=== PATIENT | male | born 1975 ===

== ENCOUNTER 2019-02-25 09:09 | Outpatient (REF) | payer MEDICAID, SELFPAY ==
[2019-02-25 19:04] LABS: Abs Immature Grans 0.03 k/cumm (0.0-0.09); Absolute Basophil Count 0.04 k/cumm (0.0-0.2); Absolute Lymphocyte Count 3.28 k/cumm (1.2-3.4); Absolute Monocyte Count 0.85 k/cumm (0.11-0.7); Absolute Neutrophil Count 9.17 k/cumm (1.2-6.7); Basophils % 0.3; Eosinophils % 2.1; HCT 51.1 % (40.0-50.0); HGB 17.3 g/dL (13.5-17.5); Immature Grans % 0.2; Mean Corp. HGB Concentration 33.9 g/dL (32.0-36.0); Mean Corpuscular Hemoglobin 29.8 pg (27.0-33.0); Mean Platelet Volume 10.5 fL (8.0-11.0); Monocytes % 6.2; Neutrophils % 67.2; Platelet Count 356 x1000/uL (130-400); RBC 5.81 m/cumm (4.50-6.00); RBC Distribution Width 14.5 % (11.8-14.1); White Blood Cell Count 13.65 k/cumm (4.4-10.8)
[2019-02-25 19:06] LABS: Absolute Eosinophil Count 0.29 k/cumm (0.0-0.7)
[2019-02-25 19:15] LABS: Anion Gap 12.4 mmol/L (3-11); BUN 12 mg/dL (7-18); CO2 23.6 mmol/L (21.0-32.0); CREATININE 0.88 mg/dL (0.70-1.30); Calcium 8.9 mg/dL (8.5-10.1); Calculated LDL 124; Chloride 104 mmol/L (98-107); Cholesterol 202 mg/dL (50-200); Glucose 87 mg/dL (70-100); HDL Cholesterol 37 mg/dL (40-60); Potassium 4.7 mmol/L (3.5-5.1); Sodium 140 mmol/L (136-145); Triglyceride 207 mg/dL (30-150)
== END 2019-02-25 09:29 ==
LOC: NCHCN 09:09
PROVIDERS: PCP Nurse Practitioner Family; Visit Provider Physician Assistant Medical
DX: D72.829 Elevated white blood cell count, unspecified (principal); Z13.6 Encounter for screening for cardiovascular disorders; Z00.00 Encounter for general adult medical examination without abnormal findings
CPT/HCPCS: 80048; 80061; 83721; 85025

== ENCOUNTER 2019-10-11 11:26 | Outpatient (REF) | payer MEDICAID, SELFPAY ==
[2019-10-11 19:33] LABS: Calculated LDL 108 mg/dL (<100); Cholesterol 170 mg/dL (<200); Glucose 65 mg/dL (74-106); HDL Cholesterol 34 mg/dL (40-60); Triglyceride 141 mg/dL (<150)
[2019-10-14 10:41] LABS: Hepatitis C Ab w Rflx HCV PCR Negative (Negative)
[2019-10-14 10:45] LABS: HIV-1/2 Ag & Ab Screen Negative (Negative)
[2019-10-14 12:14] LABS: Syphilis Serology (RPR) Negative (Negative)
== END 2019-10-11 11:46 ==
LOC: LBN 11:26
PROVIDERS: PCP Nurse Practitioner Family
DX: Z13.1 Encounter for screening for diabetes mellitus (principal); Z11.4 Encounter for screening for human immunodeficiency virus [HIV]; Z11.3 Encounter for screening for infections with a predominantly sexual mode of transmission; Z13.220 Encounter for screening for lipoid disorders; Z11.59 Encounter for screening for other viral diseases; F52.21 Male erectile disorder; Z00.00 Encounter for general adult medical examination without abnormal findings
CPT/HCPCS: 80061; 82947; 84402; 84403; 86803; 87389; 86592

== ENCOUNTER 2020-04-16 16:00 | Outpatient (REF) | payer MEDICAID, SELFPAY ==
[2020-04-16 19:19] LABS: Abs Immature Grans 0.08 10^3/uL (0.0-0.06); Absolute Basophil Count 0.08 10^3/uL (0.0-0.2); Absolute Eosinophil Count 0.37 10^3/uL (0.0-0.7); Absolute Lymphocyte Count 4.12 10^3/uL (1.2-3.4); Absolute Monocyte Count 0.84 10^3/uL (0.1-0.8); Absolute Neutrophil Count 10.07 10^3/uL (1.2-6.7); Basophils % 0.5; Eosinophils % 2.4; HCT 48.3 % (40.0-50.0); HGB 16.2 g/dL (13.5-17.5); Immature Grans % 0.5; Lymphocytes % 26.5; MCHC 33.5 % (32.0-36.0); MCV 89.4 fL (80-95); MPV 10.3 fL (8.0-11.0); Monocytes % 5.4; Neutrophils % 64.7; Nucleated RBC 0 %; Platelet Count 401 10^3/uL (130-400); RDW 13.3 % (11.8-14.1); RDW-SD 43.7 fL; WBC 15.56 10^3/uL (4.4-10.8)
[2020-04-16 19:37] LABS: ALT 33 U/L (16-63); AST 18 U/L (15-37); Albumin 3.8 g/dL (3.4-5.0); Alkaline Phosphatase 70 U/L (46-116); Amylase 51 U/L (25-115); Anion Gap 10.8 mmol/L (3-11); BUN 15 mg/dL (7-18); Bilirubin, Total 0.4 mg/dL (0.2-1.0); CO2 25.2 mmol/L (21.0-32.0); CREATININE 0.91 mg/dL (0.70-1.30); Calcium 8.8 mg/dL (8.5-10.1); Chloride 105 mmol/L (98-107); Glucose 102 mg/dL (74-106); Lipase 83 U/L (73-393); Sodium 141 mmol/L (136-145); Total Protein 6.8 g/dL (6.4-8.2)
== END 2020-04-16 16:20 ==
LOC: NCHCN 16:00
PROVIDERS: PCP Nurse Practitioner Family; Visit Provider Physician Assistant
DX: R10.10 Upper abdominal pain, unspecified (principal); K21.9 Gastro-esophageal reflux disease without esophagitis
CPT/HCPCS: 80053; 83690; 82150; 85025

== ENCOUNTER 2020-04-20 16:24 | Outpatient (REF) | payer MEDICAID, SELFPAY ==
[2020-04-20 18:59] LABS: Absolute Basophil Count 0.09 10^3/uL (0.0-0.2); Absolute Eosinophil Count 0.35 10^3/uL (0.0-0.7); Basophils % 0.4; Eosinophils % 1.6; HCT 47.3 % (40.0-50.0); HGB 16.1 g/dL (13.5-17.5); Immature Grans % 0.5; Lymphocytes % 18.2; MCH 30.8 pg (27.0-33.0); MCV 90.4 fL (80-95); MPV 10.1 fL (8.0-11.0); Monocytes % 5.1; Neutrophils % 74.2; Nucleated RBC 0 %; Platelet Count 369 10^3/uL (130-400); RBC 5.23 10^6/uL (4.36-5.78); RDW 13.2 % (11.8-14.1); RDW-SD 43.7 fL; WBC 21.95 10^3/uL (4.4-10.8)
[2020-04-20 19:02] LABS: Absolute Lymphocyte Count 3.99 10^3/uL (1.2-3.4); Absolute Monocyte Count 1.12 10^3/uL (0.1-0.8); Absolute Neutrophil Count 16.29 10^3/uL (1.2-6.7)
[2020-04-20 19:08] LABS: C-Reactive Protein 2.42 mg/dL (0.0-0.3)
[2020-04-20 19:38] LABS: ESR 8 mm/hr (0-15)
== END 2020-04-20 16:44 ==
LOC: NCHCN 16:24
PROVIDERS: PCP Nurse Practitioner Family; Visit Provider Internal Medicine
DX: R10.10 Upper abdominal pain, unspecified (principal)
CPT/HCPCS: 85652; 85025; 86140

== ENCOUNTER 2022-09-01 17:38 | Outpatient (REF) | payer MEDICAID, SELFPAY ==
[2022-09-01 20:35] LABS: HCT 47.6 % (40.0-50.0); HGB 16.3 g/dL (13.5-17.5); MCH 29.2 pg (27.0-33.0); MCHC 34.2 % (32.0-36.0); MCV 85 fL (80-95); MPV 9.9 fL (8.0-11.0); Platelet Count 298 10^3/uL (130-400); RBC 5.58 10^6/uL (4.36-5.78); RDW 13.3 % (11.8-14.1); RDW-SD 41.4 fL; WBC 7.38 10^3/uL (4.4-10.8)
[2022-09-01 20:45] LABS: ALT 63 U/L (16-63); AST 28 U/L (15-37); Albumin 4.1 g/dL (3.4-5.0); Alkaline Phosphatase 74 U/L (46-116); Anion Gap 6.2 mmol/L (3-11); BUN 11 mg/dL (7-18); Bilirubin, Total 0.4 mg/dL (0.2-1.0); CO2 28.8 mmol/L (21.0-32.0); CREATININE 1.2 mg/dL (0.70-1.30); Calcium 8.5 mg/dL (8.5-10.1); Chloride 100 mmol/L (98-107); Glucose 96 mg/dL (74-106); Potassium 4.3 mmol/L (3.5-5.1); Sodium 135 mmol/L (136-145); Total Protein 7.2 g/dL (6.4-8.2)
[2022-09-01 21:00] LABS: Iron 37 ug/dL (65-175); Total Iron Binding Capacity 284 ug/dL (250-450); Transferrin Sat 13 % (20-55)
== END 2022-09-01 17:39 | disposition home or self-care (01) ==
LOC: NCHCN 17:38
PROVIDERS: PCP Nurse Practitioner Family; Visit Provider Internal Medicine
DX: K75.9 Inflammatory liver disease, unspecified (principal)
CPT/HCPCS: 80053; 85027; 83540; 83550; 87086

== ENCOUNTER 2024-05-22 16:10 | Outpatient (REF) | payer MEDICAID, SELFPAY ==
[2024-05-22 19:50] LABS: HCT 49.7 % (40.0-50.0); HGB 16.6 g/dL (13.5-17.5); MCH 28.5 pg (27.0-33.0); MCHC 33.4 % (32.0-36.0); MCV 85 fL (80-95); MPV 9.8 fL (8.0-11.0); Platelet Count 353 10^3/uL (130-400); RBC 5.83 10^6/uL (4.36-5.78); RDW 13.9 % (11.8-14.1); RDW-SD 43.2 fL; WBC 9.87 10^3/uL (4.4-10.8)
[2024-05-22 20:09] LABS: ALT 62 U/L (16-63); AST 30 U/L (15-37); Albumin 4.2 g/dL (3.4-5.0); Alkaline Phosphatase 64 U/L (46-116); Anion Gap 9.4 mmol/L (3-11); BUN 10 mg/dL (7-18); Bilirubin, Total 0.53 mg/dL (0.2-1.0); CO2 26.6 mmol/L (21.0-32.0); CREATININE 1.1 mg/dL (0.70-1.30); Calcium 9.5 mg/dL (8.5-10.1); Calculated LDL 124 mg/dL (<100); Chloride 104 mmol/L (98-107); Cholesterol 204 mg/dL (<200); Estimated GFR 81.78 (mL/min/1.73m2); Glucose 96 mg/dL (74-106); HDL Cholesterol 44 mg/dL (40-60); Potassium 4.3 mmol/L (3.5-5.1); Sodium 140 mmol/L (136-145); TSH 1.49 uIU/Ml (0.36-3.74); Total Protein 7.4 g/dL (6.4-8.2); Triglyceride 181 mg/dL (<150)
== END 2024-05-22 16:11 | disposition home or self-care (01) ==
LOC: NCHCN 16:10
PROVIDERS: PCP Nurse Practitioner Family; Visit Provider Internal Medicine
DX: E78.5 Hyperlipidemia, unspecified (principal); R53.83 Other fatigue
CPT/HCPCS: 80053; 80061; 85027; 84443